=== PATIENT | female | born 1945 | race Caucasian/White ===

== ENCOUNTER 2023-07-17 12:26 | Emergency (ER) | payer MEDICARE, SELFPAY ==
--- NOTE | 2023-07-17 12:34 | ED.SKABFB ---
HPI - Skin/Abscess/Foreign Bdy General Chief complaint: Extremity Problem,Nontraumatic Stated complaint: Swollen Toe Left Foot Time Seen by Provider: 07/17/23 12:56 Source: patient and RN notes reviewed Mode of arrival: ambulatory Limitations: dementia History of Present Illness HPI narrative: 77-year-old female with history of diabetes presents for redness, warmth, swelling, tenderness to the lateral 1st digit of left foot. Reports she noticed it turned red 3 days ago and symptoms progressed over the last 3 days. She denies any fever, body aches, chills, sweats. She reports she has had history of cellulitis in this area. MD complaint: other (Redness) Related Data Home Medications Medication Instructions Recorded Confirmed aspirin 81 mg chewable tablet 81 mg PO DAILY 07/17/23 07/17/23 atorvastatin 10 mg tablet 10 mg PO DAILY 07/17/23 07/17/23 diltiazem HCl 240 mg 240 mg PO DAILY 07/17/23 07/17/23 capsule,extended release 24 hr furosemide 20 mg tablet 20 mg PO DAILY 07/17/23 07/17/23 gabapentin 100 mg capsule 100 mg PO DAILY 07/17/23 07/17/23 lisinopril 10 mg tablet 10 mg PO DAILY 07/17/23 07/17/23 metformin 500 mg tablet 500 mg PO TID 07/17/23 07/17/23 metoprolol succinate 50 mg 550 mg PO DAILY 07/17/23 07/17/23 tablet,extended release 24 hr Allergies Allergy/AdvReac Type Severity Reaction Status Date / Time No Known Allergies Allergy Verified 07/17/23 12:40 Review of Systems Review of Systems: CONSTITUTIONAL: Denies malaise, chills, sweats, or fever. EYES: Denies redness, or discharge. ENT: Denies rhinorrhea, congestion, swollen lips, swollen tongue CARDIOVASCULAR: Denies chest pain, palpitations, or edema. RESPIRATORY: Denies cough or dyspnea. GASTROINTESTINAL: Denies abdominal pain, nausea, vomiting SKIN: Reports redness, swelling, tenderness, warmth to the 1st digit of the left foot. Denies purulent drainage, vesicles, bullae, numbness, pain beyond proportion MUSCULOSKELETAL: Denies joint pain or myalgia. NEUROLOGIC: Denies headache. All systems reviewed & are unremarkable except as noted in HPI and below PMFSH Comments At time of signature, agree with nursing past medical, surgical, social and family history. There is no relevant family history pertinent to the presenting complaint Exam Narrative: GENERAL: Well-appearing, well-nourished, and in no acute distress. HEAD: Normocephalic, atraumatic. EYES: PERRLA, conjunctivae clear ENT: Mucous membranes moist. NECK: Supple. No lymphadenopathy CHEST: Clear to auscultation. No respiratory distress. HEART: Regular rate and rhythm. SKIN: Warm, dry. Erythema, induration, tenderness, warmth with no fluctuation with sharp margins noted to the 1st digit of the left foot. No vesicles, bullae, necrosis, ecchymosis, crepitus noted. NEURO: Alert and oriented x3. PSYCH: Normal mood and affect Course Course Emergency Course: Patient is diabetic. The cellulitis is mild, no open wounds noted. At this time I will treat with a single antibiotic. Patient is visiting from [place] for 2 weeks that she is unable to follow-up with her primary care provider I advised her if the symptoms worsen or do not improve she can return for re-evaluation. Patient is aware of diagnosis, understands and agrees to treatment plan. Anticipatory guidance given. Patient agrees to follow-up as directed and is aware of reasons to seek care at the emergency department. Portions of this record may have been created with voice recognition software Level of Care: Express Care Visit Vital Signs Vital signs: Reviewed. MDM - Skin/Abscess/Foreign Bdy MDM Narrative Medical decision making narrative: I evaluated this in the express care. History is obtained from patient who is an independent historian and physical exam was performed.? Available medical records were reviewed. ? Exam findings and relevant testing show no acute concerns or changes; patient is non-toxic appearing and
[2023-07-17 12:39] VITALS: BP 138/59; PULSE 88; RESP 18; TEMP 36.7; O2SAT 97
[2023-07-17 12:42] VITALS: BP 138/59; PULSE 88; RESP 18; TEMP 36.7; O2SAT 97
== END 2023-07-17 13:03 | disposition home or self-care (01) ==
PROVIDERS: Emergency Provider Nurse Practitioner
DX: L03.032 Cellulitis of left toe (principal); E78.00 Pure hypercholesterolemia, unspecified; I10 Essential (primary) hypertension; K21.9 Gastro-esophageal reflux disease without esophagitis; M19.90 Unspecified osteoarthritis, unspecified site; E11.42 Type 2 diabetes mellitus with diabetic polyneuropathy; Z79.82 Long term (current) use of aspirin; Z79.84 Long term (current) use of oral hypoglycemic drugs
CPT/HCPCS: 99203; G0463